=== PATIENT | female | born 1965 | race Caucasian/White ===

== ENCOUNTER 2019-12-29 08:00 | Outpatient (RCR) | payer MEDICARE, MEDICAID, SELFPAY ==
--- NOTE | 2020-01-19 10:30 | MHC.PT.DC ---
[facility] [place] Office [place] [facility] [place] [facility] [address] iMlady Padilla [address] [phone] F: [phone] F: [phone] F: [phone] F: [phone] Physical Therapy Discharge Report Diagnosis: UNSTEADY GAIT Date of Surgery: Date of Evaluation: 11/24/19 Date of Discharge: 01/19/20 Treatments to Date: 8 Cancellations to Date: 2 No Shows to Date: 1 Discharge Status: Independent with HEP Patient Elected to Stop Recommend MD Follow-up Discharge Summary: Spoke with Tammy who has been sick for the last few weeks. At this time she is confident with her current home program but feels that therapy increases pain in other body areas At times it has been difficult to discuss muscular length and strength imbalances with Kristan as she feels her pain is generated from old pelvic fracture (although reported pain is in muscular distributions) She is demonstrating more symmetry with bridging and stabilizing activities but is self D/Cing at this time due to personal reasons and illness. Electronically signed by: Preethi Matos PT, DPT Please sign and return to therapist. Thank you for your referral.
== END 2020-01-19 10:37 | disposition other institution (70) ==
LOC: HO.PT 08:00
PROVIDERS: PCP Physician Assistant; Visit Provider Physician Assistant
DX: R26.81 Unsteadiness on feet (principal)
CPT/HCPCS: 97110; 97112; 97140